=== PATIENT | male | born 1955 | race Two or more races ===

== ENCOUNTER → 2022-06-24 14:19 | Outpatient (BNVA) | payer MEDICARE, MEDICAID, SELFPAY | PROVIDERS: PCP Internal Medicine; Visit Provider Urology | DX: N40.1 Benign prostatic hyperplasia with lower urinary tract symptoms (principal); N13.8 Other obstructive and reflux uropathy; Z13.9 Encounter for screening, unspecified | CPT/HCPCS: 51798; 99202 ==